=== PATIENT | male | born 1965 | race Caucasian/White ===

== ENCOUNTER → 2020-10-27 | Outpatient (CLI) | payer OTHER | LOC: EXRD 13:13 | DX: M54.5 Low back pain (principal); R20.2 Paresthesia of skin; M25.551 Pain in right hip; M19.90 Unspecified osteoarthritis, unspecified site; M47.816 Spondylosis without myelopathy or radiculopathy, lumbar region | CPT/HCPCS: 72100; 73030; 73502 ==